=== PATIENT | female | born 1995 | race Caucasian/White ===

== ENCOUNTER 2018-04-17 13:42 | Emergency (ER) | payer OTHER ==
[~2018-04-17] VITALS: Ht 157.5 cm; Wt 56.7 kg
[~2018-04-17 13:42] MED LIST: Acetaminophen/Cod #3 Tablet PO
== END 2018-04-17 15:59 | disposition home or self-care (01) ==
LOC: ER 13:42
DX: N83.201 Unspecified ovarian cyst, right side (principal); N93.8 Other specified abnormal uterine and vaginal bleeding

== ENCOUNTER 2018-11-07 05:28 | Day surgery (SDC) | payer OTHER | END 2018-11-07 15:20 | disposition home or self-care (01) | LOC: CIR.AMB 05:28 | DX: D26.1 Other benign neoplasm of corpus uteri (principal) ==

== ENCOUNTER 2021-03-10 17:33 | Outpatient (CLI) | payer OTHER ==
[2021-03-10] MEDS ORDERED: PRENATAL TABLE1 EAC1 PO (18:53)
== END 2021-03-11 09:56 | disposition home or self-care (01) ==
LOC: OBS/DEL 17:33
PROVIDERS: ATTEND Obstetrics & Gynecology
DX: O26.893 Other specified pregnancy related conditions, third trimester (principal); R10.2 Pelvic and perineal pain; Z3A.32 32 weeks gestation of pregnancy

== ENCOUNTER 2021-05-01 02:38 | Inpatient (IN) | payer OTHER ==
[~2021-05-01] VITALS: Ht 157.5 cm; Wt 2.7 kg
[~2021-05-01 02:38] MED LIST changes: +PRENATAL TABLE1 EAC1 PO
[2021-05-01] MEDS ORDERED: PRENATAL CAPLE1 EAC1 PO (02:52)
[2021-05-01] MEDS ORDERED: HYDROXYZINE PAM25 MG (08:54)
[2021-05-01] MEDS ORDERED: NIFEDIPINE10 M1 (08:55)
[2021-05-01] MEDS ORDERED: CONCEPT DHA CA1 EACH (08:55)
[2021-05-01] MEDS ORDERED: VALACYCLOVIR1000 MG (08:55)
== END 2021-05-04 15:12 | disposition home or self-care (01) | DRG 788 ==
LOC: OBS/DEL 02:38 → LDR 02:44 → OBS/DEL 04:37 → LDR 06:07 → OB/GYN 06:07
PROVIDERS: ADMIT Obstetrics & Gynecology; ATTEND Obstetrics & Gynecology
PROC: 10907ZC Drainage of Amniotic Fluid, Therapeutic from Products of Conception, Via Natural or Artificial Opening (ICD-10-PCS; 2021-05-01)
PROC: 3E033VJ Introduction of Other Hormone into Peripheral Vein, Percutaneous Approach (ICD-10-PCS; 2021-05-01)
PROC: 10D00Z1 Extraction of Products of Conception, Low, Open Approach (ICD-10-PCS; principal; 2021-05-01 11:15)
DX: O61.0 Failed medical induction of labor (principal); Z3A.39 39 weeks gestation of pregnancy; Z37.0 Single live birth